=== PATIENT | male | born 1950 | race Two or more races ===

== ENCOUNTER 2024-03-24 20:08 | Emergency (ER) | payer OTHER ==
[~2024-03-24] VITALS: Ht 185.4 cm; Wt 88.5 kg
[2024-03-24] MEDS ORDERED: SYNTHROID75 MCG (20:16)
[2024-03-24] MEDS ORDERED: 0.9 % SODIUM CHLORIDE 1,000 ML IV SCH (20:39)
[2024-03-24] MEDS ORDERED: BARIUM SULFATE 450 ML ORAL.SUSP PO ONE (20:58)
[2024-03-24 21:19] LABS: HEMATOCRIT 29.4 % (39.0-48.0); HEMOGLOBIN 9.4 g/dL (13-16.00); MEAN CORPUSCULAR HEMOGLOBIN 24.7 pg (27.00-32.0); PLATELET COUNT 297 K/uL (150-450); RED BLOOD COUNT 3.81 M/uL (4.00-6.00); RED CELL DISTRIBUTION WIDTH 16.3 % (11.5-14.5)
[2024-03-24] MEDS ORDERED: HYOSCYAMINE SULFATE 0.125 MG TAB.SUBL ONE (21:28)
[2024-03-24 21:33] LABS: CALCIUM 8.9 mg/dL (8.5-10.1); CREATININE SERUM 1.22 mg/dL (0.70-1.30); GFR 57.91; POTASSIUM 4.6 mEq/L (3.5-5.1)
[2024-03-24 21:36] LABS: URINE APPEARANCE Clear; URINE BILIRRUBIN Negative (NEGATIVE); URINE BLOOD Negative; URINE COLOR Dark Yellow; URINE GLUCOSE Negative (NEGATIVE); URINE KETONE Trace (NEGATIVE); URINE LEUKOCYTE Negative; URINE NITRATE Negative; URINE PROTEIN Negative (NEGATIVE)
[2024-03-24 21:39] LABS: URINE BACTERIA 15.1 uL (0.0-1933); URINE EPITHELIAL CELLS 1.5 uL (0.0-38.8); URINE RBC 6.1 uL (0.0-20.8)
[2024-03-25 02:25] LABS: HEMATOCRIT 27.5 % (39.0-48.0); HEMOGLOBIN 8.8 g/dL (13-16.00); MEAN CELL VOLUME 77.9 fL (80.0-100.00); MEAN CORPUSCULAR HEMOGLOBIN 24.9 pg (27.00-32.0); MEAN CORPUSCULAR HGB CONC 32.1 g/dl (32.0-36.0); PLATELET COUNT 284 K/uL (150-450); RED BLOOD COUNT 3.53 M/uL (4.00-6.00); RED CELL DISTRIBUTION WIDTH 15.9 % (11.5-14.5)
[2024-03-25 07:00] LABS: HEMOGLOBIN 8.9 g/dL (13-16.00); MEAN CELL VOLUME 75.7 fL (80.0-100.00); MEAN CORPUSCULAR HGB CONC 31.9 g/dl (32.0-36.0); PLATELET COUNT 276 K/uL (150-450); RED CELL DISTRIBUTION WIDTH 16.7 % (11.5-14.5)
== END 2024-03-25 10:24 | disposition home or self-care (01) ==
LOC: ER 20:08
PROVIDERS: Emergency Medicine; General Practice
DX: R10.9 Unspecified abdominal pain (principal); E03.8 Other specified hypothyroidism; Z88.0 Allergy status to penicillin; K63.89 Other specified diseases of intestine
CPT/HCPCS: 36415; 74022; 74240; 96365; 96366; 99283; J7030

== ENCOUNTER 2024-04-26 05:30 | Inpatient (IN) | payer OTHER ==
[~2024-04-26] VITALS: Ht 182.9 cm; Wt 68.0 kg
[~2024-04-26 05:30] MED LIST: DUTASTERIDE-TA1 EACH PO; FERROUS GLUCON324 M1 PO; FOLIC ACID0.8 M1 PO; SYNTHROID75 MCG PO; TAMS0.4C PO; VITAMIN D-40010 MCG PO
[2024-04-26] MEDS ORDERED: 0.9 % SODIUM CHLORIDE 1,000 ML IV SCH (08:00)
[2024-04-26] MEDS ORDERED: CANDESARTAN CILEXETIL 8 MG TAB PO SCH (09:00)
[2024-04-26] MEDS ORDERED: FUROsemide 20 MG/2 ML VIAL IV SCH (09:00)
[2024-04-26 11:00] LABS: HEMATOCRIT 33.1 % (39.0-48.0); HEMOGLOBIN 10.7 g/dL (13-16.00); MEAN CELL VOLUME 78.4 fL (80.0-100.00); MEAN CORPUSCULAR HEMOGLOBIN 25.2 pg (27.00-32.0); MEAN CORPUSCULAR HGB CONC 32.1 g/dl (32.0-36.0); PLATELET COUNT 261 K/uL (150-450); RED BLOOD COUNT 4.23 M/uL (4.00-6.00)
[2024-04-26 11:01] VITALS: BP 155/79; O2SAT 100
[2024-04-26 11:02] LABS: RED CELL DISTRIBUTION WIDTH 20.6 % (11.5-14.5)
[2024-04-26 12:44] VITALS: BP 160/80; O2SAT 100
[2024-04-26 16:00] VITALS: BP 150/75; O2SAT 100
[2024-04-27] VITALS: BP 142/61; O2SAT 98
[2024-04-27 08:00] VITALS: BP 154/71; O2SAT 99
[2024-04-27] MEDS ORDERED: FUROsemide 20 MG/2 ML VIAL IV SCH (09:00)
[2024-04-27 09:52] LABS: HEMATOCRIT 33.1 % (39.0-48.0); HEMOGLOBIN 10.7 g/dL (13-16.00); MEAN CELL VOLUME 80.5 fL (80.0-100.00); MEAN CORPUSCULAR HGB CONC 32.4 g/dl (32.0-36.0); PLATELET COUNT 222 K/uL (150-450); RED BLOOD COUNT 4.11 M/uL (4.00-6.00); RED CELL DISTRIBUTION WIDTH 20.6 % (11.5-14.5)
[2024-04-27 16:49] VITALS: BP 156/81; O2SAT 98
[2024-04-28 00:23] VITALS: BP 111/66; O2SAT 98
[2024-04-28 00:29] VITALS: BP 156/79; O2SAT 96
[2024-04-28 06:47] LABS: HEMATOCRIT 36.9 % (39.0-48.0); MEAN CORPUSCULAR HEMOGLOBIN 26.3 pg (27.00-32.0); MEAN CORPUSCULAR HGB CONC 32.5 g/dl (32.0-36.0); PLATELET COUNT 249 K/uL (150-450); RED BLOOD COUNT 4.56 M/uL (4.00-6.00); RED CELL DISTRIBUTION WIDTH 20.9 % (11.5-14.5)
[2024-04-28] MEDS ORDERED: OxyCODONE HCL 5 MG TABLET (ROXICODONE) PO PRN (10:45)
[2024-04-28] MEDS ORDERED: ONDANSETRON HCL 2 MG/ML VIAL IV PRN (10:45)
[2024-04-28] MEDS ORDERED: MORPHINE SULFATE 4 MG/ML CARTRIDGE IV PRN (10:45)
[2024-04-28] MEDS ORDERED: RINGERS SOLUTION,LACTATED 1,000 ML IV SCH (10:45)
[2024-04-28] MEDS ORDERED: ENALAPRILAT DIHYDRATE 1.25 MG/ML VIAL IV PRN (11:45)
[2024-04-28] MEDS ORDERED: SOD FERRIC GLUC COMPLX/SUCROSE 62.5 MG/5 ML AMPUL IV NR (12:00)
[2024-04-28] MEDS ORDERED: SIMETHICONE 125 MG CAPSULE PO SCH (13:00)
[2024-04-28] MEDS ORDERED: HYOSCYAMINE SULFATE 0.125 MG TAB.SUBL SL SCH (13:00)
[2024-04-28 13:30] VITALS: BP 147/65; O2SAT 97
[2024-04-28] MEDS ORDERED: ACETAMINOPHEN 500 MG GEL..CAP PO SCH (14:00)
[2024-04-28 16:53] VITALS: BP 175/80; O2SAT 98
[2024-04-28] MEDS ORDERED: METOCLOPRAMIDE HCL 5 MG/ML VIAL IV SCH (17:00)
[2024-04-28] MEDS ORDERED: CELECOXIB 200 MG CAPSULE PO SCH (17:00)
[2024-04-28] MEDS ORDERED: GABAPENTIN 300 MG CAPSULE PO SCH (17:00)
[2024-04-28] MEDS ORDERED: POLYETHYLENE GLYCOL 3350 17 GM BLIST.PACK PO SCH (17:00)
[2024-04-28] MEDS ORDERED: TAMSULOSIN HCL 0.4 MG CAP PO SCH (21:00)
[2024-04-28] MEDS ORDERED: FAMOTIDINE/PF 20 MG/2 ML VIAL IV PUSH SCH (21:00)
[2024-04-28] MEDS ORDERED: PATIENTS OWN MEDICATION (MEDICAMENTO EN PISO) PO SCH (21:00)
[2024-04-29 00:23] VITALS: BP 131/84; O2SAT 100
[2024-04-29] MEDS ORDERED: LEVOTHYROXINE SODIUM 112 MCG TABLET PO SCH (06:00)
[2024-04-29 06:49] LABS: HEMATOCRIT 35.1 % (39.0-48.0); HEMOGLOBIN 11.6 g/dL (13-16.00); MEAN CELL VOLUME 79.5 fL (80.0-100.00); MEAN CORPUSCULAR HEMOGLOBIN 26.3 pg (27.00-32.0); MEAN CORPUSCULAR HGB CONC 33.1 g/dl (32.0-36.0); PLATELET COUNT 228 K/uL (150-450); RED BLOOD COUNT 4.41 M/uL (4.00-6.00); RED CELL DISTRIBUTION WIDTH 20.8 % (11.5-14.5)
[2024-04-29 07:14] LABS: ALBUMIN 2.8 gm/dL (3.4-5.0); CALCIUM 8.1 mg/dL (8.5-10.1); GFR 72.84; MAGNESIUM 1.7 mg/dL (1.8-2.4); PHOSPHOROUS 2.8 mg/dL (2.5-4.9); POTASSIUM 3.73 mEq/L (3.5-5.1)
[2024-04-29 08:50] VITALS: BP 135/73; O2SAT 95
[2024-04-29] MEDS ORDERED: Cyanocobalamin/Mecobalamin 1 TAB.SL SL SCH (09:00)
[2024-04-29] MEDS ORDERED: SOD FERRIC GLUC COMPLX/SUCROSE 62.5 MG in 0.9 % SODIUM CHLORIDE 50 ML IV SCH (09:00)
[2024-04-29] MEDS ORDERED: LACTULOSE 20 G/30 ML BLIST.PACK PO SCH (09:00)
[2024-04-29] MEDS ORDERED: LACTOBACILLUS ACIDOPHILUS 1 CAP CAP PO SCH (09:00)
[2024-04-29] MEDS ORDERED: MAGNESIUM SULFATE IN WATER 50 ML IV NR (11:12)
[2024-04-29] MEDS ORDERED: FINASTERIDE 5 MG TABLET PO SCH (17:00)
[2024-04-29] MEDS ORDERED: TAMSULOSIN HCL 0.4 MG CAP PO SCH (17:00)
[2024-04-29] MEDS ORDERED: ENOXAPARIN SODIUM 40 MG/0.4 ML SYRINGE SUBCUTANEO SCH (17:00)
[2024-04-29 17:01] VITALS: BP 178/81; O2SAT 98
[2024-04-30 01:24] VITALS: BP 141/83; O2SAT 98
[2024-04-30 08:57] LABS: HEMATOCRIT 41.4 % (39.0-48.0); HEMOGLOBIN 13.6 g/dL (13-16.00); MEAN CELL VOLUME 79.8 fL (80.0-100.00); MEAN CORPUSCULAR HEMOGLOBIN 26.3 pg (27.00-32.0); MEAN CORPUSCULAR HGB CONC 32.9 g/dl (32.0-36.0); PLATELET COUNT 269 K/uL (150-450); RED BLOOD COUNT 5.19 M/uL (4.00-6.00); RED CELL DISTRIBUTION WIDTH 21.6 % (11.5-14.5)
[2024-04-30] MEDS ORDERED: ENOXAPARIN SODIUM 40 MG/0.4 ML SYRINGE SUBCUTANEO SCH (09:00)
[2024-04-30 09:48] LABS: CALCIUM 8.5 mg/dL (8.5-10.1); CREATININE SERUM 0.95 mg/dL (0.70-1.30); GFR 77.29; MAGNESIUM 2.2 mg/dL (1.8-2.4); PHOSPHOROUS 3.2 mg/dL (2.5-4.9); POTASSIUM 4.12 mEq/L (3.5-5.1)
[2024-04-30 17:00] VITALS: BP 148/79; O2SAT 98
[2024-05-01 00:45] VITALS: BP 139/51; O2SAT 100
[2024-05-01 08:00] VITALS: BP 170/76; O2SAT 95
[2024-05-01] MEDS ORDERED: MINERAL OIL 30 ML BLIST.PACK PO NR (09:58)
[2024-05-01] MEDS ORDERED: MAGNESIUM HYDROXIDE 30 ML BLIST.PACK PO NR (09:58)
[2024-05-01 16:00] VITALS: BP 194/82; O2SAT 96
[2024-05-02 01:01] VITALS: BP 167/93; O2SAT 96
[2024-05-02 02:14] VITALS: BP 143/79
[2024-05-02 18:12] VITALS: BP 190/93; O2SAT 98
[2024-05-03 00:16] VITALS: BP 184/86; O2SAT 98
[2024-05-03 07:17] LABS: CALCIUM 7.9 mg/dL (8.5-10.1); CREATININE SERUM 0.79 mg/dL (0.70-1.30); GFR 95.62; MAGNESIUM 1.8 mg/dL (1.8-2.4); POTASSIUM 3.78 mEq/L (3.5-5.1)
[2024-05-03 07:43] LABS: HEMATOCRIT 36.1 % (39.0-48.0); HEMOGLOBIN 12.1 g/dL (13-16.00); MEAN CELL VOLUME 80.6 fL (80.0-100.00); MEAN CORPUSCULAR HGB CONC 33.4 g/dl (32.0-36.0); PLATELET COUNT 292 K/uL (150-450); RED BLOOD COUNT 4.48 M/uL (4.00-6.00)
[2024-05-03 08:00] VITALS: BP 151/75; O2SAT 95
[2024-05-03] MEDS ORDERED: HYOSCYAMINE0.125 M1 SL (09:48)
[2024-05-03] MEDS ORDERED: TRAM1TAB98 PO (09:49)
[2024-05-03] MEDS ORDERED: INTESTINEX680 M1 PO (09:49)
== END 2024-05-03 13:30 | disposition home or self-care (01) | DRG 330 ==
LOC: ER 05:30 → SURH 08:24 → SURG 05-02 13:21
PROVIDERS: Colon & Rectal Surgery; ADMIT Internal Medicine Geriatric Medicine; ATTEND Internal Medicine Geriatric Medicine
PROC: 30233N1 Transfusion of Nonautologous Red Blood Cells into Peripheral Vein, Percutaneous Approach (ICD-10-PCS; 2024-04-26)
PROC: 0DTN4ZZ Resection of Sigmoid Colon, Percutaneous Endoscopic Approach (ICD-10-PCS; principal; 2024-04-28)
PROC: 0DBP4ZZ Excision of Rectum, Percutaneous Endoscopic Approach (ICD-10-PCS; 2024-04-28)
PROC: 0DBL4ZZ Excision of Transverse Colon, Percutaneous Endoscopic Approach (ICD-10-PCS; 2024-04-28)
PROC: 07BB4ZZ Excision of Mesenteric Lymphatic, Percutaneous Endoscopic Approach (ICD-10-PCS; 2024-04-28)
PROC: 0DJD8ZZ Inspection of Lower Intestinal Tract, Via Natural or Artificial Opening Endoscopic (ICD-10-PCS; 2024-04-28)
DX: C18.4 Malignant neoplasm of transverse colon (principal); K92.1 Melena; D12.3 Benign neoplasm of transverse colon; D63.0 Anemia in neoplastic disease; D64.89 Other specified anemias; D12.6 Benign neoplasm of colon, unspecified; R59.0 Localized enlarged lymph nodes; K66.0 Peritoneal adhesions (postprocedural) (postinfection); R11.2 Nausea with vomiting, unspecified; E83.42 Hypomagnesemia; I10 Essential (primary) hypertension; E03.9 Hypothyroidism, unspecified